=== PATIENT | male | born 1995 | race Hispanic/Latino ===

== ENCOUNTER 2017-11-19 21:54 | Emergency (ER) | payer OTHER ==
[2017-11-19 23:03] VITALS: O2SAT 98
[2017-11-20 00:36] LABS: BASO # 0.1 K/uL (0.0-0.2); BASO % 1.2 % (0.0-2.0); EOS # 0.2 K/uL (0.0-0.7); EOS % 2.3 % (0.0-4.0); HEMOGLOBIN 14.3 g/dL (12.0-18.0); LYMPH # 2.6 K/uL (1.0-4.3); MEAN CELL VOLUME 91.9 fL (80.0-94.0); MEAN CORPUSCULAR HEMOGLOBIN 31.2 pg (27.0-31.0); MEAN CORPUSCULAR HGB CONC 33.9 g/dL (33.0-37.0); MEAN PLATELET VOLUME 9.6 fL (7.2-11.7); MONO # 0.5 K/uL (0.0-0.8); MONO % 7.5 % (0.0-10.0); NEUT # 3.5 K/uL (1.8-7.0); NRBC % 0.1 % (0.0-2.0); RBC 4.6 Mil/uL (4.40-5.90); RED CELL DISTRIBUTION WIDTH 12.5 % (11.5-14.5); WHITE BLOOD COUNT 6.9 K/uL (4.8-10.8)
[2017-11-20 00:47] LABS: ALB/GLOB RATIO 1.3 (1.0-2.1); ALBUMIN 4.7 g/dL (3.5-5.0); ALT/SGPT 37 U/L (21-72); AST/SGOT 26 U/L (17-59); BLOOD UREA NITROGEN 17 mg/dL (9-20); CALCIUM 9.2 mg/dl (8.6-10.4); GFR AFRICAN-AMERICAN > 60; GFR NON-AFRICAN AMERICAN > 60; LIPASE 67 U/L (23-300)
--- NOTE | 2017-11-20 01:40 | US ---
EXAM: US Abdomen Limited, Right Upper Quadrant CLINICAL HISTORY: 21 years old, male; Pain; Abdominal pain; Epigastric; Additional info: Ruq pain TECHNIQUE: Real-time ultrasound of the right upper quadrant with image documentation. COMPARISON: No relevant prior studies available. FINDINGS: Liver: Normal echogenicity. No mass. No intrahepatic bile duct dilatation. Gallbladder: No gallstones. No wall thickening. No pericholecystic fluid. No sonographic Erickson's sign. Common bile duct: No dilatation. No stones. Pancreas: Unremarkable as visualized. Right kidney: Normal echogenicity. No hydronephrosis. IMPRESSION: 1.No acute findings.
--- NOTE | 2017-11-20 01:43 | C.PDOC ---
History Of Present Illness 21 year old male presents to the ED c/o epigastric pain associated with nausea and diarrhea for past few weeks. Patient states he saw his PMD yesterday and was prescribed Carafate that he has been taking with no relief. Patient is now c /o RUQ pain and pain has not improved. Patient denies fever, chills, vomit, rash , recent travel, sick contacts. Time Seen by Provider: 11/19/17 23:46 Chief Complaint (Nursing): Abdominal Pain History Per: Patient History/Exam Limitations: no limitations Onset/Duration Of Symptoms: Days Current Symptoms Are (Timing): Still Present Location Of Pain/Discomfort: RUQ, Epigastric Radiation Of Pain To:: None Quality Of Discomfort: "Pain" Associated Symptoms: Nausea, Diarrhea Exacerbating Factors: None Alleviating Factors: None Recent travel outside of the [place]: No Additional History Per: Patient Past Medical History Reviewed: Historical Data, Nursing Documentation, Vital Signs Vital Signs: Last Vital Signs Temp 98 F 11/20/17 01:55 Pulse 65 11/20/17 01:55 Resp 16 11/20/17 01:55 BP 126/86 11/20/17 01:55 Pulse Ox 98 11/20/17 02:06 - Medical History PMH: No Chronic Diseases Surgical History: No Surg Hx Family History: States: Unknown Family Hx - Social History Hx Alcohol Use: Yes Hx Substance Use: No Review Of Systems Constitutional: Negative for: Fever, Chills Cardiovascular: Negative for: Chest Pain Respiratory: Negative for: Cough Gastrointestinal: Positive for: Nausea, Abdominal Pain, Diarrhea Genitourinary: Negative for: Dysuria Musculoskeletal: Negative for: Back Pain Skin: Negative for: Rash Neurological: Negative for: Weakness, Numbness Physical Exam - Physical Exam Appears: Non-toxic, No Acute Distress Skin: Normal Color, Warm, Dry Head: Atraumatic, Normacephalic Nose: No Discharge, No Deformity Oral Mucosa: Moist Neck: Normal ROM, Supple Chest: Symmetrical Cardiovascular: Rhythm Regular, No Murmur Respiratory: Normal Breath Sounds, No Rales, No Rhonchi, No Wheezing Gastrointestinal/Abdominal: Soft, Tenderness (Epigastric, RUQ), No Guarding, No Rebound, Other (Negative Erickson's sign) Extremity: Normal ROM, No Pedal Edema, No Deformity, No Swelling Neurological/Psych: Oriented x3, Normal Speech, Normal Cognition Gait: Steady ED Course And Treatment - Laboratory Results Result Diagrams: 11/20/17 00:29 11/20/17 00:29 O2 Sat by Pulse Oximetry: 98 (On RA) Pulse Ox Interpretation: Normal - CT Scan/US US abdomen Other Rad Studies (CT/US): Read By Radiologist, Radiology Report Reviewed CT/US Interpretation: EXAM: US Abdomen Limited, Right Upper Quadrant. CLINICAL HISTORY: 21 years old, male; Pain; Abdominal pain; Epigastric; Additional info: Ruq pain. TECHNIQUE: Real-time ultrasound of the right upper quadrant with image documentation. COMPARISON: No relevant prior studies available. FINDINGS: Liver: Normal echogenicity. No mass. No intrahepatic bile duct dilatation. Gallbladder: No gallstones. No wall thickening. No pericholecystic fluid. No sonographic Erickson's. sign. Common bile duct: No dilatation. No stones. Pancreas: Unremarkable as visualized. Right kidney: Normal echogenicity. No hydronephrosis. IMPRESSION: 1. No acute findings. Progress Note: Plan: -Labs. -Pepcid 20 mg IVP. -Abdomen US Reevaluation Time: 02:08 Reassessment Condition: Improved (Pt is now asymptomatic , abd soft NT. Advised to continue carafate, diet changes as explained and keep follow up appt with PMD. 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 - Scribe Statement The provider has reviewed the documentation as recorded by the Danitaibjean Huerta All medical record entries made by the Scribe were at my direction and personally dictated by me. I have reviewed the chart and agree that the record accurately reflects my personal performance of the history, physical exam, medical decision making, and the department course for this patient. I have also personally directed, reviewed, and agree with the discharge instructions and disposition.
[2017-11-20 01:56] VITALS: BP 126/86; PULSE 65; RESP 16; TEMP 98
== END 2017-11-20 02:27 | disposition home or self-care (01) ==
LOC: C.ER 21:54
DX: R10.13 Epigastric pain (principal)